=== PATIENT | male | born 1965 | race Caucasian/White ===

== ENCOUNTER → 2016-07-02 | Outpatient (CLI) | payer OTHER ==
[~2016-07-02] VITALS: Ht 189.2 cm; Wt 122.7 kg
[~2016-07-02] MED LIST: IBUP-1050 PO; LISI-461 PO; MULTTAB58 PO; NIAC1TAB52 PO; OMEG10002 PO
[2016-07-02 15:58] VITALS: BP 137/91; PULSE 84; Ht 189.2 cm; Wt 122.7 kg
== END | disposition home or self-care (01) ==
LOC: C.NEUR 15:33
PROVIDERS: ATTEND Internal Medicine Pulmonary Disease
DX: G47.33 Obstructive sleep apnea (adult) (pediatric) (principal); G47.19 Other hypersomnia; G47.00 Insomnia, unspecified; I10 Essential (primary) hypertension

== ENCOUNTER → 2016-10-22 | Outpatient (CLI) | payer OTHER ==
--- NOTE | 2016-10-22 14:18 | DIAGNOSTIC IMAGING REPORT ---
LEFT KNEE 4 OR MORE CLINICAL HISTORY: LEFT KNEE AND ANKLE PAIN trauma. Pain. COMPARISON: None. DISCUSSION: Oblique fracture proximal fibula. Remaining osseous structures are intact. No significant joint effusion. There is no evidence for soft tissue swelling. IMPRESSION: Oblique fracture proximal fibular shaft Electronically signed by: Sean Kong M.D. 10/22/2016 2:17 PM Dictated Date/Time: 10/22/2016 2:16 PM
--- NOTE | 2016-10-22 14:18 | DIAGNOSTIC IMAGING REPORT ---
LEFT ANKLE 3 VIEWS CLINICAL HISTORY: Fall with left ankle injury. FINDINGS: 3 views of left ankle are obtained. No prior studies are available for comparison at the time of dictation. The skeletal structures are well mineralized. There is a minimally distracted avulsion fracture of the medial malleolus. There is widening of the medial joint space on the frontal view which measures up to 6 mm. The distal fibula appears intact. There is a large joint effusion and soft tissue swelling is present. There are dorsal and plantar calcaneal enthesophytes. IMPRESSION: 1. Avulsion fracture of the medial malleolus with widening of the medial joint space. 2. Joint effusion and soft tissue edema. Electronically signed by: Semaj Wilkes M.D. 10/22/2016 2:16 PM Dictated Date/Time: 10/22/2016 2:15 PM
== END | disposition home or self-care (01) ==
LOC: C.RDSM 14:00
PROVIDERS: ATTEND Family Medicine
DX: R52 Pain, unspecified (principal)

== ENCOUNTER → 2016-10-25 | Day surgery (SDC) | payer OTHER ==
[2016-10-22 16:38] LABS: HEMATOCRIT 44.1 % (42-52); MEAN CELL VOLUME 93.2 fL (80-100); MEAN CORPUSCULAR HGB CONC 35.4 g/dl (32-36); MEAN PLATELET VOLUME 9.6 fL (7.4-10.4); PLATELET COUNT 285 K/uL (130-400); RED BLOOD COUNT 4.73 M/uL (4.7-6.1); WHITE BLOOD COUNT 8.28 K/uL (4.8-10.8)
[~2016-10-25] VITALS: Ht 189.2 cm; Wt 120.4 kg
[~2016-10-25] MED LIST changes: +ATROPINE SULFATE 0.1 MG/ML 5ML SYR IV PRN; +BUPIVACAINE/EPINEPHRINE 0.25% 1:200,000 30 ML VIAL ONE; +BUPIVACAINE/EPINEPHRINE 0.5% MPF 1:200,000 30 ML VIAL ONE; +CEFAZOLIN 2000 MG/60 ML D5W IV SCH; +CEFAZOLIN IV 2,000 MG/60 ML D5W IV ONE; +DEXAMETHASONE SOD INJ 4 MG/ML VIAL ONE; +EpHEDrine SULFATE INJ 50 MG/ML AMP IV PRN; +FENTANYL CITRATE INJ 50 MCG/1 ML 2 ML VIAL IV PRN; +FENTANYL CITRATE INJ 50 MCG/1 ML 2 ML VIAL ONE; +FLUMAZENIL 0.1 MG/1 ML 10 ML VIAL IV PRN; +HYDROmorphone INJ 2 MG/ML SYR/VIAL IV PRN; +LABETALOL HCL IV 5 MG/ML 20ML IV PRN; +LACTATED RINGER'S 1000ML 1,000 ML IV SCH; +LIDOCAINE HCL 1% 20 ML VIAL ONE; +LIDOCAINE HCL 2% 2 ML VIAL (20MG/ML) ONE; +MEPERIDINE HCL 25 MG/ML CARP IV PRN; +MIDAZOLAM HCL 1 MG/ML 2ML VIAL ONE; +MoRPHine SULFATE 2 MG/ML CARP IV PRN; +MoRPHine SULFATE 4 MG/ML 1 ML CARP\\VIAL IV PRN; +NALOXONE HCL 0.4 MG/1 ML VIAL/CARP IV PRN; +ONDANSETRON INJ 2 MG/ML 2 ML VIAL IV PRN; +ONDANSETRON INJ 2 MG/ML 2 ML VIAL ONE; +OXYCODONE/ACETAMINOPHEN 5-325 TAB PO PRN; +PATIENT'S ALLERGY INFO NEEDS ENTERED SCH; +PHENYLEPHRINE 100MCG/ML 5ML SYR IV PRN; +PROPOFOL IV EMULSION 10 MG/ML 20 ML VIAL IV ONE; +ROPIVACAINE 0.5% 5 MG/ML 30 ML VIAL ONE
[2016-10-25 08:59] VITALS: Ht 189.2 cm; Wt 120.4 kg
--- NOTE | 2016-10-25 09:32 | History & Physical Bridge - SC ---
H&P Re-Evaluation Bridge Note: I have examined the patient, reviewed the History & Physical and in the interval since the performance of the History & Physical I have noted the following changes of clinical significance: No changes noted
--- NOTE | 2016-10-25 13:10 | [facility] Post Operative Brief Note ---
Immediate Operative Summary Operative Date October 25, 2016. Pre-Operative Diagnosis Left Ankle Fracture with Syndesmosis Injury Post-Operative Diagnosis Same Procedure(s) Performed 1) Left Ankle Fracture Open Reduction Internal Fixation, Medial Malleolus. 2) Syndesmosis Repair. Surgeon Dr. Almaraz Balance Screwhead Polisher Surgeon(s) Suzanna Herrera PA-C (No fellow avail) Estimated Blood Loss 15 mL Findings Medial Malleolus displaced fracture. Syndesmosis Injury. Fluids (cc crystalloids) 1800 Specimens None Drains n/a Anesthesia LMA + Popliteal Block Complication(s) None Disposition Recovery Room / PACU (Stable)
--- NOTE | 2016-10-25 13:13 | Discharge Instructions-SurgCtr ---
Discharge Instructions Date of Service October 25, 2016. Visit Reason for Visit: Left Ankle Fracture And Syndesmosis Injury;Z01.818 Discharge Discharge Diagnosis / Problem: Status post Open Reduction Left ankle fracture and syndesmosis repair Discharge Goals Goal(s): Decrease discomfort, Improve function, Increase independence Activity Recommendations Activity Limitations: per Instructions/Follow-up section May Resume Sexual Activity: when tolerated Shower/Bathe: may shower/bathe in 3 days Driving or Machine Use: Not while on narcotics and in splint/boot Weightbearing Status: Left non-weightbearing Anesthesia . Post Anesthesia Instructions: If you have had General Anesthesia or IV Sedation: * Do not drive today. * Resume driving when surgeon permits. * Do not make important decisions or sign legal documents today. * Call surgeon for: 1. Temperature elevations greater than 101 degrees F. 2. Uncontrollable pain. 3. Excessive bleeding. 4. Persistent nausea and vomiting. 5. Medication intolerance (nausea, vomiting or rash). * For nausea and vomiting use only clear liquids such as: tea, soda, bouillon until nausea subsides, then gradually increase diet as tolerated. * If you have any concerns or questions, call your surgeon's office. If physician is unavailable and it is an emergency, call 911 or go to the nearest emergency room. . Instructions / Follow-Up Instructions / Follow-Up Dr. Almaraz in 10-15 days. PT in 2-7 days. Diet Recommendations Home Diet: resume previous diet Procedures Procedures Performed: 1) Left Ankle Fracture Open Reduction Internal Fixation, Medial Malleolus. 2) Syndesmosis Repair. Pending Studies Studies pending at discharge: no Medical Emergencies . Who to Call and When: Medical Emergencies: If at any time you feel your situation is an emergency, please call 911 immediately. . Non-Emergent Contact Non-Emergency issues call your: Surgeon Call Non-Emergent contact if: temperature is above 101.5, your pain is not controlled, wound has increased drainage, wound has increased redness . . "Provider Documentation" section prepared by Praneeth Almaraz. .
--- NOTE | 2016-10-25 13:18 | [facility] Operative Report ---
Operative Report Operative Date October 25, 2016. Pre-Operative Diagnosis Left Ankle Fracture with Syndesmosis Injury Post-Operative Diagnosis Same Procedure(s) Performed 1) Left Ankle Fracture Open Reduction Internal Fixation, Medial Malleolus. 2) Syndesmosis Repair. Surgeon Dr. Almaraz Welfare Service Aide Surgeon(s) Suzanna Herrera PA-C (No fellow avail) Estimated Blood Loss 15 mL Findings Displaced left Medial Malleolus fracture. Maisonneuve, syndesmotic injury. After Medial malleolus was repaired external rotation testing showed medial widening. Fluids (cc crystalloids) 1800 Specimens None Drains n/a Anesthesia LMA + Popliteal Block Complication(s) None Disposition Recovery Room / PACU (Stable) Implants 1) 4.0 x 40 mm Cannulated Screws (Arthrex). 2) 4 Hole TightRope Syndesmosis Buttress Plate. 3) Knotless TightRope Syndesmosis, Titanium x 2. Indications The patient is a 51 year old male who injured their left ankle slipping on a wet ramp and has a displaced medial malleolus fracture and Maisonneuve injury. The patient understands the risks of surgery, which include but are not limited to: bleeding, infection, re-operation, damage to nerves and arteries, continued pain, loss of reduction, hardware failure, the need for repeat surgery, decrease level of activity, and DVT. The patient understand all of these instructions and explanations, all of their questions have been satisfactorily addressed. The patient have elected to proceed with surgery and the informed consent was signed. Description of Procedure The patient was taken to the Operating Room and placed in the supine position on the operating table. After general anesthetic was administered a multidisciplinary time-out was performed identifying my initials on the left limb as the correct and operative limb. Prior to the incision being made, 2 grams of intravenous Ancef were given. The left leg was prepped and draped in the standard fashion. The distal fibula was marked as well as the planned incision centered about the distal fibula 4 cm in length. The medial malleolus and anterior joint line were also marked. A 5 cm incision medially was planned for the ORIF of the displaced medial malleolus fracture and to allow the placement of the syndesmotic TightRope's. The planned incisions laterally and the medial were injected with a 50:50 mixture of 1% lidocaine and 0.5 % Marcaine with epi for a total of 16 cc. The planned incision medially was carried down to the medial malleolus and tibia with care to protect the saphenous nerve and vein. The displaced fragment was easily identified with noted periosteum between the 2 fragments. The edges of both fragments were freshened to allow for a reduction and holding it in place with pointed reduction clamp. 2 K wires for the 4.0 mm cannulated screws were placed using a double aiming guide. Once the reduction and good placement of the K wires were confirmed, the outer cortex was drilled and two 4.0 x 40 mm cannulated screws were placed in the standard fashion. Fluoroscopy showed anatomic reduction of the medial malleolus. External rotation testing was performed and there was medial space widening. The planned lateral incision was made and carried down to the fibula. The Superficial Peroneal nerve was identified and protected throughout the case. The 4-hole plate was centered on the fibula with the middle 2 holes available for Syndesmotic TightRopes to be placed. The plate was held in place by a single be-be tack in the most distal hole followed by a cancellus screw 14 mm, after confirming good placement of the plate. The BB tack was removed and replaced with another 14 mm cancellus screw. A large reduction clamp was used and placed through both incisions, to reduce the syndesmosis. Guide wires were placed parallel to the joint for the TightRope, after the ankle was reduced and checked under fluoro. The TightRope were placed in the plate in the standard fashion. Once the button was seated on the anteromedial cortex the sutures were tightened in the standard fashion. The most distal remaining hole was filled first. Testing via external rotation testing showed the syndesmosis to be reduced and stable. The wounds were copiously irrigated. Final x-rays were obtained. The fascia over the plate and medial malleolus were closed with 2-0 Vicryl and the subcutaneous layer were closed with 3-0 Vicryl. The skin was closed with 3-0 nylon. The sponge and needle counts were correct. The wounds were covered with Xeroform, 4x4's, ABD's, Steril cast padding, and an AO splint was placed. The patient was awakened and taken to the recovery room in stable condition. Post-op Instructions: The patient will remain NWB. Pain medicine prescription was given pre- operatively to be taken as needed. The patient will follow up with me in 10-15 days. I attest to the content of the Intraoperative Record and any orders documented therein. Any exceptions are noted below.
--- NOTE | 2016-10-25 13:48 | [facility] Operative Report ---
Operative Report Operative Date October 25, 2016. Pre-Operative Diagnosis Left Ankle Fracture with Syndesmosis Injury Post-Operative Diagnosis Same Procedure(s) Performed 1) Left Ankle Fracture Open Reduction Internal Fixation, Medial Malleolus. 2) Syndesmosis Repair. Surgeon Dr. Almaraz Serv[employer] Surgeon(s) Suzanna Herrera PA-C (No fellow avail) Estimated Blood Loss 15 mL Findings same Fluids (cc crystalloids) 1800 Specimens None Drains none Anesthesia general Complication(s) None Disposition Recovery Room / PACU Implants see Dr. Almaraz's note Indications sustained injury to left ankle s/p fall, xrays obtained, surgery recommended, consents signed. Description of Procedure taken to the OR, prepped and draped, I was present the entire case, please see Dr. Almaraz's note for further detail. I attest to the content of the Intraoperative Record and any orders documented therein. Any exceptions are noted below.
[2016-10-25 14:10] VITALS: TEMP 36.4
--- NOTE | 2016-10-25 14:16 | Anesthesia Progress Nt - [facility] ---
Anesthesia Post Op Note Date & Time October 25, 2016 at 14:16 Vital Signs Pain Intensity: 0 Vital Signs Past 12 Hours Date Time Temp Pulse Resp B/P Pulse Ox O2 Delivery O2 Flow Rate FiO2 10/25/16 14:05 124/77 10/25/16 14:02 93 10 10/25/16 14:02 91 10 98 10/25/16 14:01 97 17 10/25/16 14:01 96 17 93 10/25/16 14:00 125/75 10/25/16 14:00 36.6 97 16 125/75 97 Room Air 10/25/16 13:56 98 12 93 10/25/16 13:56 98 12 10/25/16 13:55 127/83 10/25/16 13:51 97 17 98 10/25/16 13:51 97 17 10/25/16 13:50 118/72 10/25/16 13:47 96 17 96 10/25/16 13:47 96 17 10/25/16 13:46 92 20 10/25/16 13:46 92 20 96 10/25/16 13:45 124/81 10/25/16 13:41 101 18 93 10/25/16 13:41 100 18 10/25/16 13:40 123/76 10/25/16 13:37 104 20 10/25/16 13:37 20 10/25/16 13:35 124/79 10/25/16 13:32 96 23 93 10/25/16 13:32 97 23 10/25/16 13:30 131/84 10/25/16 13:30 37.1 95 16 131/84 98 Mask 8 10/25/16 10:47 75 53 98 10/25/16 10:47 77 10/25/16 10:46 78 18 98 10/25/16 10:46 79 10/25/16 10:45 120/73 10/25/16 10:41 78 27 99 10/25/16 10:41 78 10/25/16 10:40 131/73 10/25/16 10:36 79 10/25/16 10:36 76 16 98 10/25/16 10:35 145/77 10/25/16 10:31 71 10/25/16 10:31 70 8 98 10/25/16 10:30 129/76 10/25/16 10:26 73 5/8/17 10:26 70 15 99 10/25/16 10:25 117/74 10/25/16 10:21 79 10/25/16 10:21 79 8 99 10/25/16 10:20 128/79 10/25/16 10:16 90 0 96 10/25/16 10:16 84 10/25/16 10:15 130/79 10/25/16 10:11 79 0 10/25/16 10:06 86 0 10/25/16 10:01 81 0 10/25/16 09:56 83 0 10/25/16 09:51 86 0 10/25/16 09:05 36.9 85 16 145/79 96 Room Air Notes Mental Status: alert / awake / arousable, participated in evaluation Pt Amnestic to Procedure: Yes Nausea / Vomiting: adequately controlled Pain: adequately controlled Airway Patency, RR, SpO2: stable & adequate BP & HR: stable & adequate Hydration State: stable & adequate Anesthetic Complications: no major complications apparent
[2016-10-25 14:36] VITALS: BP 120/78; PULSE 97; O2SAT 95
== END | disposition home or self-care (01) ==
LOC: X.SURG 08:42
PROVIDERS: ATTEND Orthopaedic Surgery Sports Medicine
DX: S99.812A Other specified injuries of left ankle, initial encounter (principal); I10 Essential (primary) hypertension; G47.33 Obstructive sleep apnea (adult) (pediatric); W18.40XA Slipping, tripping and stumbling without falling, unspecified, initial encounter; Y93.01 Activity, walking, marching and hiking

== ENCOUNTER → 2016-11-25 | Outpatient (CLI) | payer OTHER ==
[~2016-11-25] MED LIST changes: -ATROPINE SULFATE 0.1 MG/ML 5ML SYR IV PRN; -BUPIVACAINE/EPINEPHRINE 0.25% 1:200,000 30 ML VIAL ONE; -BUPIVACAINE/EPINEPHRINE 0.5% MPF 1:200,000 30 ML VIAL ONE; -CEFAZOLIN 2000 MG/60 ML D5W IV SCH; -CEFAZOLIN IV 2,000 MG/60 ML D5W IV ONE; -DEXAMETHASONE SOD INJ 4 MG/ML VIAL ONE; -EpHEDrine SULFATE INJ 50 MG/ML AMP IV PRN; -FENTANYL CITRATE INJ 50 MCG/1 ML 2 ML VIAL IV PRN; -FENTANYL CITRATE INJ 50 MCG/1 ML 2 ML VIAL ONE; -FLUMAZENIL 0.1 MG/1 ML 10 ML VIAL IV PRN; -HYDROmorphone INJ 2 MG/ML SYR/VIAL IV PRN; -IBUP-1050 PO; -LABETALOL HCL IV 5 MG/ML 20ML IV PRN; -LACTATED RINGER'S 1000ML 1,000 ML IV SCH; -LIDOCAINE HCL 1% 20 ML VIAL ONE; -LIDOCAINE HCL 2% 2 ML VIAL (20MG/ML) ONE; -MEPERIDINE HCL 25 MG/ML CARP IV PRN; -MIDAZOLAM HCL 1 MG/ML 2ML VIAL ONE; -MoRPHine SULFATE 2 MG/ML CARP IV PRN; -MoRPHine SULFATE 4 MG/ML 1 ML CARP\\VIAL IV PRN; -NALOXONE HCL 0.4 MG/1 ML VIAL/CARP IV PRN; -ONDANSETRON INJ 2 MG/ML 2 ML VIAL IV PRN; -ONDANSETRON INJ 2 MG/ML 2 ML VIAL ONE; -OXYCODONE/ACETAMINOPHEN 5-325 TAB PO PRN; -PATIENT'S ALLERGY INFO NEEDS ENTERED SCH; -PHENYLEPHRINE 100MCG/ML 5ML SYR IV PRN; -PROPOFOL IV EMULSION 10 MG/ML 20 ML VIAL IV ONE; -ROPIVACAINE 0.5% 5 MG/ML 30 ML VIAL ONE
== END | disposition home or self-care (01) ==
LOC: C.RDSM 08:17
PROVIDERS: ATTEND Orthopaedic Surgery Sports Medicine
DX: Z09 Encounter for follow-up examination after completed treatment for conditions other than malignant neoplasm (principal); M25.562 Pain in left knee; M25.572 Pain in left ankle and joints of left foot

== ENCOUNTER → 2016-12-24 | Outpatient (CLI) | payer OTHER | END | disposition home or self-care (01) | LOC: C.RDSM 09:45 | PROVIDERS: ATTEND Orthopaedic Surgery Sports Medicine | DX: Z09 Encounter for follow-up examination after completed treatment for conditions other than malignant neoplasm (principal) ==

== ENCOUNTER → 2016-12-31 | Outpatient (CLI) | payer OTHER ==
[~2016-12-31] VITALS: Ht 190.5 cm; Wt 124.1 kg
[2016-12-31 16:24] VITALS: BP 138/91; PULSE 97; Ht 190.5 cm; Wt 124.1 kg
== END | disposition home or self-care (01) ==
LOC: C.NEUR 15:41
PROVIDERS: ATTEND Internal Medicine Pulmonary Disease
DX: G47.33 Obstructive sleep apnea (adult) (pediatric) (principal)

== ENCOUNTER → 2017-01-20 | Outpatient (CLI) | payer OTHER | END | disposition home or self-care (01) | LOC: C.RDSM 12:52 | PROVIDERS: ATTEND Orthopaedic Surgery Sports Medicine | DX: Z09 Encounter for follow-up examination after completed treatment for conditions other than malignant neoplasm (principal) ==

== ENCOUNTER → 2017-06-09 | Outpatient (CLI) | payer OTHER | END | disposition home or self-care (01) | LOC: C.RDSM 10:47 | PROVIDERS: ATTEND Orthopaedic Surgery Sports Medicine | DX: Z09 Encounter for follow-up examination after completed treatment for conditions other than malignant neoplasm (principal); M25.562 Pain in left knee ==

== ENCOUNTER → 2017-07-15 | Outpatient (CLI) | payer BC ==
[~2017-07-15] VITALS: Ht 190.5 cm; Wt 124.6 kg
[2017-07-15 12:49] VITALS: BP 131/87; PULSE 93; Ht 190.5 cm; Wt 124.6 kg
== END | disposition home or self-care (01) ==
LOC: C.NEUR 12:35
PROVIDERS: ATTEND Internal Medicine Pulmonary Disease
DX: G47.33 Obstructive sleep apnea (adult) (pediatric) (principal); I10 Essential (primary) hypertension